=== PATIENT | female | born 1940 | race Caucasian/White ===

== ENCOUNTER 2018-09-13 05:34 | Day surgery (SDC) | payer MEDICARE ==
[2018-09-09 11:51] LABS: BASOPHILS % (AUTO) 0.4 % (0-1); EOSINOPHILS # (AUTO) 0.2 X10'3 (0-0.9); EOSINOPHILS % (AUTO) 2.8 % (0-6); LYMPHOCYTES # (AUTO) 1.9 X10'3 (1.1-4.8); LYMPHOCYTES % (AUTO) 26.9 % (21-51); MEAN CORPUSCULAR HEMOGLOBIN 29.6 PG (27.0-31.0); MEAN CORPUSCULAR HGB CONC 33.7 g/dL (33.0-36.5); MEAN CORPUSCULAR VOLUME 87.8 FL (78-98); MEAN PLATELET VOLUME 7.5 FL (7.4-10.4); MONOCYTES # (AUTO) 0.6 X10'3 (0-0.9); MONOCYTES % (AUTO) 8.7 % (2-12); NEUTROPHILS # (AUTO) 4.4 X10'3 (1.8-7.7); NEUTROPHILS % (AUTO) 61.2 % (42-75); PRE OP HEMATOCRIT 41.9 % (35.0-45.0); PRE OP HEMOGLOBIN 14.1 g/dL (12.0-16.0); PRE OP PLATELET COUNT 332 X10'3 (140-440); RED BLOOD COUNT 4.77 X10'6 (4.20-5.60); RED CELL DISTRIBUTION WIDTH 14.6 % (11.5-14.5)
[2018-09-09 12:01] LABS: ALBUMIN 3.6 G/DL (3.4-5.0); ALKALINE PHOSPHATASE 96 IU/L (46-116); BLOOD UREA NITROGEN 16 MG/DL (7-18); BUN/CREATININE RATIO 18.8 (6.6-38.0); CHLORIDE 102 MMOL/L (99-107); CREATININE 0.85 MG/DL (0.40-0.90); PRE OP ALT 26 U/L (30-65); PRE OP ANION GAP 9 (8-16); PRE OP AST 22 U/L (10-37); PRE OP BILIRUB, TOTAL 0.6 MG/DL (0.0-1.0); PRE OP GLUCOSE 98 MG/DL (70-104); PRE OP POTASSIUM 3.4 MMOL/L (3.4-5.1); PRE OP SODIUM 141 MMOL/L (135-145); TOTAL CARBON DIOXIDE 30.3 MMOL/L (24-32); TOTAL PROTEIN 7.2 G/DL (6.4-8.2); eGFR 64 ML/MIN
[~2018-09-13] VITALS: Ht 162.6 cm; Wt 72.0 kg
[~2018-09-13 05:34] MED LIST: ALPR0.5T8 PO; AMLO5TAB PO; CHRO1000 PO; DOCUMENT DATE & TIME OF BETA-BLOCKER PO ONE; LOSA1TAB39 PO; METO-411 PO; NIA500ERT PO; ceFAZolin 1GM/D5W- ADD-VANTAGE 50 ML IV ONE; famotidine 20mg tablet PO ONE; ringers solution, lacted 1,000 ML IV SCH
[2018-09-13 05:40] VITALS: BP 137/76
[2018-09-13] MEDS ORDERED: LIDOcaine 1% (10mg/ml) 2ml vial ONE (06:09)
[2018-09-13] MEDS ORDERED: BUPIVAcaine/PF 2.5mg/ml (0.25%) 10ml vial ONE (06:46)
[2018-09-13] MEDS ORDERED: LIDOcaine 1% 30ml preserv. free vial ONE (07:26)
[2018-09-13] MEDS ORDERED: midazolam 2 mg/2 ml injection ONE (07:30)
[2018-09-13] MEDS ORDERED: fentaNYL/PF 50MCG/1 ML 2ML syringe ONE (07:30)
[2018-09-13] MEDS ORDERED: ketorolac trometh. 30mg/ml inj. ONE (07:33)
[2018-09-13 07:55] VITALS: BP 137/78
--- NOTE | 2018-09-13 07:55 | NUR ---
Received from OR via BED, accompanied by Anesthesiologist DR CHAU and report given by Anesthesiolgist. PATIENT A&OX4, DENIES PAIN, V/S WNL, NEUROVASCULAR CHECKS INTACT, 20G PIV LUE, SCD ON, DRESSING TO RIGHT WRIST CDI ELEVATED WITH ICEBAG APPLIED.
[2018-09-13] MEDS ORDERED: ringers solution, lacted 1,000 ML IV SCH (07:59)
[2018-09-13] MEDS ORDERED: morphine 4 MG/ML inj SYRINge IV PRN ×2 (08:00)
[2018-09-13] MEDS ORDERED: meperidine/PF 25mg/ml syringe IV PRN ×3 (08:00)
[2018-09-13] MEDS ORDERED: ondansetron/PF 4mg/2ml inj IV PRN (08:00)
[2018-09-13] MEDS ORDERED: proCHLORperazine 10 MG/2 ml inj IV PRN (08:00)
[2018-09-13 08:05] VITALS: BP 122/70
[2018-09-13 08:15] VITALS: BP 119/64
[2018-09-13 08:25] VITALS: BP 122/68
--- NOTE | 2018-09-13 08:25 | NUR ---
PATIENT A&OX4, DENIES PAIN, V/S WNL, NEUROVASCULAR CHECKS INTACT, 20G PIV LUE D/C, SCD OFF, DRESSING TO RIGHT WRIST CDI ELEVATED WITH ICEBAG APPLIED. I HAVE REVIEWED D/C INSTRUCTIONS WITH PATIENT AND FAMILY AND THEY HAVE VERBALIZED UNDERSTANDING. PATIENT D/C HOME WITH ALL BELONGINGS AND FAMILY GAVE TRANSPORT HOME.
== END 2018-09-13 08:25 | disposition home or self-care (01) ==
LOC: PAS 05:34
PROVIDERS: ATTEND Orthopaedic Surgery Hand Surgery
DX: G56.01 Carpal tunnel syndrome, right upper limb (principal); I10 Essential (primary) hypertension; K21.9 Gastro-esophageal reflux disease without esophagitis; G47.33 Obstructive sleep apnea (adult) (pediatric); Z90.710 Acquired absence of both cervix and uterus; Z98.890 Other specified postprocedural states; Z72.89 Other problems related to lifestyle; Z88.8 Allergy status to other drugs, medicaments and biological substances; Z79.899 Other long term (current) drug therapy
CPT/HCPCS: 36415; 64721; 80053; 82948; 85025; 93005; A6222; A6449; J0690; J1885; J2250; J3010; J3490; J7120

== ENCOUNTER 2018-10-11 05:39 | Day surgery (SDC) | payer MEDICARE ==
[2018-10-11] VITALS (7 sets, daily range): BP systolic 111–136; BP diastolic 65–84
[~2018-10-11] VITALS: Ht 162.6 cm; Wt 71.8 kg
[~2018-10-11 05:39] MED LIST changes: +ceFAZolin 1,000 MG/D5W 50ML IVPB Premixed bag IV ONE; -ceFAZolin 1GM/D5W- ADD-VANTAGE 50 ML IV ONE; +cefazolin/dext.iso 2gm/100 ML IV ONE
[2018-10-11] MEDS ORDERED: LIDOcaine 1% (10mg/ml) 2ml vial ONE (06:03)
[2018-10-11] MEDS ORDERED: BUPIVAcaine/PF 2.5mg/ml (0.25%) 10ml vial ONE (06:47)
[2018-10-11] MEDS ORDERED: flumazenil 0.1 mg/ml inj. IV ONE (07:08)
[2018-10-11] MEDS ORDERED: LIDOcaine 0.5% (5mg/ml) 50ml vial ONE (07:12)
[2018-10-11] MEDS ORDERED: fentaNYL/PF 50MCG/1 ML 2ML syringe ONE (07:16)
[2018-10-11] MEDS ORDERED: MIDAZolam 5mg/5ml vial ONE (07:16)
[2018-10-11] MEDS ORDERED: propofol inj 20 ML IV ONE (07:19)
[2018-10-11] MEDS ORDERED: ringers solution, lacted 1,000 ML IV SCH (07:33)
[2018-10-11] MEDS ORDERED: ondansetron/PF 4mg/2ml inj IV PRN (07:35)
[2018-10-11] MEDS ORDERED: labetalol 20mg/4ml (5mg/ml) syringe IV PRN (07:35)
[2018-10-11] MEDS ORDERED: morphine 4 MG/ML inj SYRINge IV PRN ×2 (07:35)
[2018-10-11] MEDS ORDERED: hydrALAZINE 20mg/ml inj. IV PRN (07:35)
--- NOTE | 2018-10-11 07:40 | NUR ---
Received from OR via NURIA, accompanied by Anesthesiologist ASTRID and report given by Anesthesiologist. PT DROWSY, APPROPRIATE, DENIES PAIN. 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 Addendum: 10/11/18 at 0808 by Karla Razo RN Amended: Links added.
[2018-10-11 08:01] LABS: BASOPHILS % (AUTO) 0.4 % (0-1); EOSINOPHILS # (AUTO) 0.2 X10'3 (0-0.9); EOSINOPHILS % (AUTO) 3.7 % (0-6); LYMPHOCYTES # (AUTO) 1.5 X10'3 (1.1-4.8); LYMPHOCYTES % (AUTO) 23.7 % (21-51); MEAN CORPUSCULAR HEMOGLOBIN 29.1 PG (27.0-31.0); MEAN CORPUSCULAR HGB CONC 33.1 g/dL (33.0-36.5); MEAN CORPUSCULAR VOLUME 87.9 FL (78-98); MEAN PLATELET VOLUME 8.4 FL (7.4-10.4); MONOCYTES # (AUTO) 0.7 X10'3 (0-0.9); MONOCYTES % (AUTO) 11.3 % (2-12); NEUTROPHILS # (AUTO) 3.9 X10'3 (1.8-7.7); NEUTROPHILS % (AUTO) 60.9 % (42-75); PRE OP HEMATOCRIT 42.7 % (35.0-45.0); PRE OP HEMOGLOBIN 14.1 g/dL (12.0-16.0); PRE OP PLATELET COUNT 290 X10'3 (140-440); RED BLOOD COUNT 4.87 X10'6 (4.20-5.60); RED CELL DISTRIBUTION WIDTH 14.4 % (11.5-14.5)
[2018-10-11 08:10] LABS: ALBUMIN 3.3 G/DL (3.4-5.0); ALBUMIN/GLOBULIN RATIO 0.9 (1.1-1.5); ALKALINE PHOSPHATASE 89 IU/L (46-116); BLOOD UREA NITROGEN 15 MG/DL (7-18); BUN/CREATININE RATIO 17.4 (6.6-38.0); CALCIUM 9.2 MG/DL (8.5-10.1); CHLORIDE 102 MMOL/L (99-107); CREATININE 0.86 MG/DL (0.40-0.90); PRE OP ALT 25 U/L (30-65); PRE OP ANION GAP 9 (8-16); PRE OP AST 23 U/L (10-37); PRE OP BILIRUB, TOTAL 0.5 MG/DL (0.0-1.0); PRE OP GLUCOSE 108 MG/DL (70-104); PRE OP POTASSIUM 3.4 MMOL/L (3.4-5.1); PRE OP SODIUM 140 MMOL/L (135-145); TOTAL CARBON DIOXIDE 29.5 MMOL/L (24-32); TOTAL PROTEIN 6.8 G/DL (6.4-8.2); eGFR 63 ML/MIN
== END 2018-10-11 08:30 | disposition home or self-care (01) ==
LOC: PAS 05:39
PROVIDERS: ATTEND Orthopaedic Surgery Hand Surgery
DX: G56.02 Carpal tunnel syndrome, left upper limb (principal); I10 Essential (primary) hypertension; M19.011 Primary osteoarthritis, right shoulder; G47.30 Sleep apnea, unspecified; Z88.8 Allergy status to other drugs, medicaments and biological substances; Z79.899 Other long term (current) drug therapy; K21.9 Gastro-esophageal reflux disease without esophagitis; Z90.710 Acquired absence of both cervix and uterus; Z72.89 Other problems related to lifestyle
CPT/HCPCS: 36415; 64721; 80053; 82948; 85025; A6222; A6449; J0690; J2001; J2250; J2704; J3010; J3490; J7120

== ENCOUNTER 2020-05-26 13:28 | Outpatient (CLI) | payer MEDICARE ==
[~2020-05-26 13:28] MED LIST changes: -DOCUMENT DATE & TIME OF BETA-BLOCKER PO ONE; -ceFAZolin 1,000 MG/D5W 50ML IVPB Premixed bag IV ONE; -cefazolin/dext.iso 2gm/100 ML IV ONE; -famotidine 20mg tablet PO ONE; -ringers solution, lacted 1,000 ML IV SCH
== END 2020-05-26 23:59 | disposition home or self-care (01) ==
LOC: VAS 13:28
PROVIDERS: ATTEND Orthopaedic Surgery
DX: S83.232D Complex tear of medial meniscus, current injury, left knee, subsequent encounter (principal); S83.272D Complex tear of lateral meniscus, current injury, left knee, subsequent encounter; M22.02 Recurrent dislocation of patella, left knee; M22.42 Chondromalacia patellae, left knee; X58.XXXD Exposure to other specified factors, subsequent encounter
CPT/HCPCS: 93971

== ENCOUNTER 2020-10-13 13:21 | Day surgery (SDC) | payer MEDICARE ==
[2020-10-13] VITALS (10 sets, daily range): BP systolic 127–147; BP diastolic 67–87
[~2020-10-13] VITALS: Ht 160 cm; Wt 73.4 kg
[2020-10-13] MEDS ORDERED: LORazepam 0.5 MG tablet PO PRN (14:05)
[2020-10-13] MEDS ORDERED: diphenhydrAMINE 25mg capsule PO PRN (14:05)
[2020-10-13] MEDS ORDERED: nitroGLYCERIN 0.4mg SUBLingual tab SL PRN (14:05)
[2020-10-13] MEDS ORDERED: LIDOcaine 1% (10mg/ml)w/preservative injection 20ml MDV ONE (14:41)
[2020-10-13] MEDS ORDERED: midazolam 1 mg/ML 2ml injection ONE (14:41)
[2020-10-13] MEDS ORDERED: fentaNYL/PF 50MCG/1 ML 2ML syringe ONE (14:41)
[2020-10-13] MEDS ORDERED: iohexol 350 MG/ML 50ML vial IV ONE (14:41)
[2020-10-13] MEDS ORDERED: iohexol 350MG/ML 100ml bottle IV ONE (14:41)
[2020-10-13] MEDS ORDERED: ASPI-611 PO (15:07)
[2020-10-13] MEDS ORDERED: proCHLORperazine 10 MG/2 ml inj IV PRN (16:20)
[2020-10-13] MEDS ORDERED: ondansetron/PF 4mg/2ml inj IV PRN (16:20)
[2020-10-13] MEDS ORDERED: normal saline 1000ml 1,000 ML IV SCH (16:20)
[2020-10-13] MEDS ORDERED: OXAZEpam 15mg capsule PO PRN (16:20)
[2020-10-13] MEDS ORDERED: HYDROmorphone inj. 0.5 MG/0.5 ML DISP.SYRIN IV PRN (16:25)
== END 2020-10-13 20:00 | disposition home or self-care (01) ==
LOC: SSTAY O 13:21
PROVIDERS: ATTEND Internal Medicine Cardiovascular Disease
DX: R94.39 Abnormal result of other cardiovascular function study (principal); I25.119 Atherosclerotic heart disease of native coronary artery with unspecified angina pectoris; G47.30 Sleep apnea, unspecified; I10 Essential (primary) hypertension; E78.5 Hyperlipidemia, unspecified; M19.90 Unspecified osteoarthritis, unspecified site; J44.9 Chronic obstructive pulmonary disease, unspecified; Z88.5 Allergy status to narcotic agent; Z88.8 Allergy status to other drugs, medicaments and biological substances; Z90.710 Acquired absence of both cervix and uterus; Z98.890 Other specified postprocedural states; Z87.891 Personal history of nicotine dependence; Z79.82 Long term (current) use of aspirin; Z79.899 Other long term (current) drug therapy
CPT/HCPCS: 93005; 93458; 99152; C1760; C1769; J1644; J2001; J2250; J3010; Q9967; A4620; A6258